=== PATIENT | female | born 1960 ===

== ENCOUNTER 2019-01-23 07:29 | Outpatient (CLI) | payer BC | END 2019-01-23 07:32 | disposition home or self-care (01) | LOC: SONOGRAMA 07:29 | DX: R10.31 Right lower quadrant pain (principal); R10.32 Left lower quadrant pain; E06.3 Autoimmune thyroiditis; R94.6 Abnormal results of thyroid function studies; E04.1 Nontoxic single thyroid nodule ==

== ENCOUNTER 2023-09-07 08:12 | Outpatient (CLI) | payer OTHER | END 2023-09-07 08:25 | disposition home or self-care (01) | LOC: SONOGRAMA 08:12 | DX: E04.1 Nontoxic single thyroid nodule (principal) ==

== ENCOUNTER 2024-12-26 13:33 | Outpatient (CLI) | payer OTHER | END 2024-12-26 13:42 | disposition home or self-care (01) | LOC: SONOGRAMA 13:33 | PROVIDERS: ATTEND Family Medicine | DX: M77.12 Lateral epicondylitis, left elbow (principal) ==